=== PATIENT | female | born 1965 | race Caucasian/White ===

== ENCOUNTER 2018-02-15 13:36 | Outpatient (CLI) | payer BC ==
[~2018-02-15] VITALS: Ht 172.7 cm; Wt 97.1 kg
[2018-02-15] MEDS ORDERED: MULT-141 PO (13:44)
[2018-02-15 13:47] VITALS: BP 130/80
[2018-02-15 14:33] LABS: BASOPHILS # (AUTO) 0.1 10^3/uL (0.0-0.1); BASOPHILS % (AUTO) 2 % (0-10); EOSINOPHILS # (AUTO) 0.1 10^3/uL (0.0-0.3); EOSINOPHILS % (AUTO) 1 % (0-10); HEMATOCRIT 32 % (35-52); HEMOGLOBIN 9.7 G/DL (11.5-16.0); LYMPHOCYTES # (AUTO) 3.6 X 10^3 (1.0-4.0); LYMPHOCYTES % (AUTO) 49 % (12-44); MEAN CORPUSCULAR HEMOGLOBIN 22 PG (25-34); MEAN CORPUSCULAR HGB CONC 30 G/DL (32-36); MEAN CORPUSCULAR VOLUME 73 FL (80-99); MEAN PLATELET VOLUME 9.9 FL (7.4-10.4); MONOCYTES # (AUTO) 0.8 X 10^3 (0.0-1.0); MONOCYTES % (AUTO) 12 % (0-12); NEUTROPHILS # (AUTO) 2.6 X 10^3 (1.8-7.8); NEUTROPHILS % (AUTO) 36 % (42-75); PLATELET COUNT 328 10^3/uL (130-400); RED BLOOD COUNT 4.42 10^6/uL (4.35-5.85); RED CELL DISTRIBUTION WIDTH 17.3 % (10.0-14.5); WHITE BLOOD COUNT 7.3 10^3/uL (4.3-11.0)
== END 2018-02-15 14:30 | disposition home or self-care (01) ==
LOC: PREOP 13:36
PROVIDERS: ATTEND Obstetrics & Gynecology
DX: Z01.812 Encounter for preprocedural laboratory examination (principal); Z11.2 Encounter for screening for other bacterial diseases; R10.2 Pelvic and perineal pain; D25.9 Leiomyoma of uterus, unspecified; N93.9 Abnormal uterine and vaginal bleeding, unspecified
CPT/HCPCS: 36415; 85025; 86850; 86900; 86901; 87081

== ENCOUNTER 2018-02-21 09:46 | Day surgery (SDC) | payer BC ==
[~2018-02-21] VITALS: Ht 172.7 cm; Wt 97.1 kg
[~2018-02-21 09:46] MED LIST: MULT-141 PO
[2018-02-21] MEDS ORDERED: LACTATED RINGERS 1,000 ML IV PRN (09:55)
[2018-02-21] MEDS ORDERED: LACTATED RINGERS 1,000 ML IV ONE (09:55)
[2018-02-21] MEDS ORDERED: ceFAZolin 2 GM IV Premixed 50 ML IV ONE (10:00)
[2018-02-21] MEDS ORDERED: metroNIDAZOLE 500MG/100ML IVPB 100 ML IV ONE (10:00)
[2018-02-21] MEDS ORDERED: CATHETER FLUSH 10 ML SYR IV PRN (10:15)
[2018-02-21 10:35] VITALS: BP 141/82
[2018-02-21] MEDS ORDERED: MIDAZOLAM 2 MG/2 ML (VERSED) VIAL IV ONE (11:00)
[2018-02-21] MEDS ORDERED: MIDAZOLAM 2 MG/2 ML (VERSED) VIAL ONE ×2 (11:01→11:05)
--- NOTE | 2018-02-21 11:04 | Progress Note-Pre Operative ---
Pre-Operative Progress Note H&P Reviewed The H&P was reviewed, patient examined and no changes noted. Date Seen by Provider: Feb 21, 2018 Time Seen by Provider: 11:00 Date H&P Reviewed: Feb 21, 2018 Time H&P Reviewed: 11:00 Pre-Operative Diagnosis: Fibroid uterus, pelvic pain MIRTHA NOGUEIRA DO Feb 21, 2018 11:04
[2018-02-21] MEDS ORDERED: ROCURONIUM 10 MG/ML 5 ML SYRINGE IV ONE ×2 (11:05→12:52)
[2018-02-21] MEDS ORDERED: proPOfol 200 MG/20 ML (DIPRIVAN) VIAL IV ONE (11:05)
[2018-02-21] MEDS ORDERED: LIDOCAINE PF 2% 5 ML (XYLOCAINE) VIAL ONE (11:05)
[2018-02-21] MEDS ORDERED: ONDANSETRON 4 MG/2 ML (SDV) Z0FRAN ONE (11:05)
[2018-02-21] MEDS ORDERED: fentaNYL INJECTION 100 MCG/2 ML AMP ONE (11:05)
[2018-02-21] MEDS ORDERED: LACTATED RINGERS 1,000 ML IV SCH ×2 (11:13→14:30)
[2018-02-21] MEDS ORDERED: ONDANSETRON 4 MG/2 ML (SDV) Z0FRAN IV PRN (11:15)
[2018-02-21] MEDS ORDERED: ZOLPIDEM 5 MG (AMBIEN) TAB PO PRN (11:15)
[2018-02-21] MEDS ORDERED: SIMETHICONE 80 MG (MYLICON) CHEW PO PRN (11:15)
[2018-02-21] MEDS ORDERED: ANTACID SUSP 30 ML UDC (MYLANTA) PO PRN (11:15)
[2018-02-21] MEDS ORDERED: DOCUSATE SODIUM 100 MG (COLACE) CAP PO PRN (11:15)
[2018-02-21] MEDS ORDERED: CHLORASEPTIC LOZENGE MM PRN (11:15)
--- NOTE | 2018-02-21 11:16 | Discharge Inst-Women's Service ---
Discharge Inst-Women's Serv Depart Medication/Instructions New, Converted or Re-Newed RX: RX on Chart Consults/Follow Up Additional Follow Up: Yes Orders/Referrals Dr. Brady in 7-10 days and in 8 weeks Activity Activity: Activity as Tolerated Driving Instructions: No Driving for 1 Week NO SMOKING: NO SMOKING Nothing Inside Vagina: No Douching, No [place], No Tampons Diet Discharge Diet: No Restrictions Symptoms to Report to : Bleeding Excessive, Pain Increased, Fever Over 101 Degrees F, Vaginal Bleeding Increase, Questions/Concerns For Any Problems or Questions: Contact Your Physician Skin/Wound Care Infection Signs and Symptoms: Increased Redness, Foul Odor of Wound, Increased Drainage, Skin Itchy or Has a Rash, Increased Swelling, Temperature Above 101 F Operative Area Clean and Dry: Keep Incision Clean/Dry Stitches/Maria Luz/Dermabond: Dermabond, Care of Stitches Bathing Instructions: MIRTHA Luna DO Feb 21, 2018 11:16
[2018-02-21] MEDS ORDERED: HYDR-34 PO (11:18)
[2018-02-21] MEDS ORDERED: IBUP-844 PO (11:18)
[2018-02-21] MEDS ORDERED: DOCU100C37 PO (11:18)
[2018-02-21] MEDS ORDERED: SIME80TA16 PO (11:18)
[2018-02-21] MEDS ORDERED: SEVOFLURANE (ULTANE) 15 ML INHAL SOLN ONE ×10 (11:21→14:01)
[2018-02-21] MEDS ORDERED: DEXAMETHASONE 10 MG/ML (DECADRON) 1 ML VIAL ONE (11:21)
[2018-02-21] MEDS ORDERED: BUPIVACAINE 0.25% 30 ML (SENSORCAINE) VIAL ONE (11:27)
[2018-02-21] MEDS ORDERED: GLYCOPYRROLATE 0.2 MG/ML (ROBINUL) 2 ML VIAL ONE (13:52)
[2018-02-21] MEDS ORDERED: NEOSTIGMINE 1 MG/ML 5 ML SYRINGE ONE (13:52)
[2018-02-21] MEDS ORDERED: ONDANSETRON 4 MG/2 ML (SDV) Z0FRAN IVP PRN (14:15)
[2018-02-21] MEDS ORDERED: morphine INJ 10 MG/ML 1ML (SYR OR VIAL) IVP ONE (14:15)
[2018-02-21] MEDS ORDERED: morphine INJ 10 MG/ML 1ML (SYR OR VIAL) ONE (14:23)
--- NOTE | 2018-02-21 14:23 | Operative Report ---
Operative Report Date of Procedure/Surgery Feb 21, 2018 Surgeon (s) MIRTHA NOGUEIRA DO Supervising Producer (s): Marianela Patel Post-Operative Diagnosis same Procedure Performed RATLH w/ BSO and appendectomy Description of Procedure Anesthesia Type: General Estimated blood loss (mL): 50 Specimen(s) collected/removed Uterus bilateral fallopian tubes and ovaries, appendix Description of the Procedure EBL: 50mL UOP: 100 mL Fluids 2000 mL LR OPERATIVE REPORT IN DETAIL: Once in the operating room, general anesthesia was found to be adequate, placed in dorsal lithotomy position, prepped and draped in normal sterile fashion. Peres catheter was placed using sterile technique. A timeout was performed. A weighted speculum was inserted in the patient's vagina. Right angle retractor was used to visualize the cervix, which was grasped at 12 o'clock position using a long Allis clamp. I then placed an 0 Vicryl suture through the anterior lip of the cervix and removed the Allis clamp. The suture was then used as my retraction point. I then selected an 8 cm tip and a 4 cm colpotomy ring for the Meena uterine manipulator after the cervix is sounded and found to be 8 cm in depth. I then advanced the manipulator tip into the uterus and deployed the balloon and advanced a colpotomy around the vaginal fornix. Once this was in place, I am able to appreciate excellent manipulation on bimanual exam. All other instruments were removed from the patient's vagina. I then performed change of gloves and taken my attention to the abdomen where infraumbilically, I infiltrated the areas using 0.25% Marcaine, making an 12 mm incision and directed a Veress needle through the incision until the intraperitoneal placement was confirmed using a saline drop test. I then proceeded with insufflation using CO2 gas and opening pressure of 3 mmHg was noted and proceeded to a maximum pressure of 15 mmHg, at which point I removed the Veress needle and introduced an 12 mm blunt da Chloe camera trocar. Once this was in place, I am able to confirm intraperitoneal placement using the da Chloe laparoscope. I then had the patient placed in steep Trendelenburg after briefly scanning the upper abdominal anatomy, which shows no evidence of any gross abnormalities. Once in steep Trendelenburg, I am able to visualize all the pelvic anatomy described above in order to complete the procedure as scheduled. I then placed two 8 mm trocars at approximately 8cm lateral to my infraumbilical trocar. The skin was infiltrated using 0.25% Marcaine. The incisions were made using a knife and the trocars were placed under direct visualization of the laparoscope. Once these were in place, I am able to bring in the da Chloe robot and docked in the appropriate fashion. I placed the da [place]hoe vessel sealer in the left hand and the monopolar cris in the right hand. I then performed the following dissection bilaterally using the [place] operative console. Starting at the infundibulopelvic ligament, I bipolar cauterized and transected this using the bipolar fenestrated grasper and monopolar cris. During this process, I monitored and watched the ureter and stay well away from it as I am dissecting. I then grasped the round ligament, bipolar cauterized and transected this using the bipolar fenestrated grasper and monopolar cris. I then grasped the entire broad ligament, bipolar cauterized and transected this using the bipolar fenestrated grasper and monopolar cris. Then, I am able to take this all the way down to the lower uterine segment, at which point, I the anterior and posterior leaflets of the broad ligament. The anterior leaflet dissection was taken down to the anterior vaginal fornix. Posterior leaflet was taken down to the posterior vaginal fornix. This has allowed me to skeletonize the uterine vessels laterally and bipolar cauterized and transected them using the bipolar fenestrated grasper and monopolar cris. I then created a colpotomy at the 12 o'clock position using monopolar cris visualizing the colpotomy ring on the Emena. I then took this circumferentially around the colpotomy ring, amputating the cervix away from the vagina. I then removed the specimen through the vagina in two separate pieces after bivalving the uterus and closed the lateral vaginal apices of the vaginal cuff using 2-0 Vicryl suture in a [id number] fashion, colposuspending into the uterosacral ligament. I then closed the remainder of the vaginal cuff using 2-0 V-Loc in a running fashion, after which, there was no active bleeding noted from any of my dissection planes. I then undocked the da Chloe robot and proceeded with the remainder of the case laparoscopically. I started by copiously irrigating the pelvis using normal saline. Once again, there was no active bleeding noted from any of my dissection planes. I placed FloSeal hemostatic agent over all my planes of dissection. I take my attention to the terminal cecum, where I grasp the appendix which appears inflammed and mildly enlarged. I take down the mesoappendix using bipolar and cris. I then amputate the appendix from the cecum at the insertion using the laparoscopic ISABEL stapler. No bleeding was noted from any of my dissection planes.I had the patient taken out of steep Trendelenburg. Once this was done, I removed the lateral trocars under direct visualization of the laparoscope. The infraumbilical trocar was left in place. I introduced 10 mL of 0.25% Marcaine for postoperative pain management and to release insufflation. This trocar was then removed. I then closed the skin using 4-0 Monocryl in interrupted subcuticular stitches. Skinaffix was applied to incision and sterile dressing with adhesive white tape. Band-Aids were placed over the incisions. Findings of the Procedure Enlarged 436 gm uterus, grossly normal appearing bilateral fallopian tubes and ovaries. A grossly edematous and inflamed appearing appendix. Allergies and Home Medications Allergies Coded Allergies: No Known Drug Allergies (Unverified , 02/15/18) Home Medications Docusate Sodium 100 Mg Capsule, 100 MG PO BID PRN for CONSTIPATION-1ST LINE Prescribed by: MIRTHA NOGUEIRA on 02/21/18 1118 Hydrocodone Bit/Acetaminophen 1 Ea Tablet, 2 EA PO Q6H PRN for Pain-See Instructions Prescribed by: MIRTHA NOGUEIRA on 02/21/18 1118 Ibuprofen 600 Mg Tablet, 600 MG PO Q6H PRN for PAIN-MODERATE Prescribed by: MIRTHA NOGUEIRA on 02/21/18 1118 Multivit with Calcium,Iron,Min 1 Each Tablet, 1 TAB PO DAILY, (Reported) Simethicone 80 Mg Tab.chew, 40 MG PO TID PRN for INDIGESTION 2ND LINE Prescribed by: MIRTHA NOGUEIRA on 02/21/18 1118 Patient Home Medication List Home Medication List Reviewed: Yes MIRTHA NOGUEIRA DO Feb 21, 2018 2:23 pm
[2018-02-21] MEDS ORDERED: KETOROLAC 30 MG/ML VIAL ONE (14:29)
[2018-02-21] MEDS: KETOROLAC 30 MG/ML VIAL IV PRN ×2 (14:32→21:30)
--- NOTE | 2018-02-21 15:15 | NUR ---
FLO LEWIS presented to unit via BED from RECOVERY, accompanied by Tanna TINEO, RN AND BOO MANAGER OF BUSINESS OPERATIONS AFTER HAVING SURGERY. FAMILY AT PT'S BEDSIDE, REPORT RECEIVED.
[2018-02-21 15:20] VITALS: BP 131/80
--- NOTE | 2018-02-21 15:30 | NUR ---
VS OBTAINED. IV TUBING CONVERTED TO PUMP TUBING; FLUIDS INFUSING @ 125 ML/HR/PUMP. INITIAL SHIFT ASSESSMENT COMPLETED; SEE INTERVENTION FOR FURTHER. CABALLERO TO D/D. SCDS ON CALVES BILATERALLY. FAMILY AT THE BEDSIDE. CALL LIGHT WITHIN REACH. NEW ICE PACK PROVIDED FOR ABD.
[2018-02-21] MEDS ORDERED: HYDROcodone/APAP 7.5 MG/325 MG (LORTAB, LORCET PLUS) TABLET PO ONE (15:55)
[2018-02-21] MEDS: HYDROcodone/APAP 7.5 MG/325 MG (LORTAB, LORCET PLUS) TABLET PO PRN (17:55)
--- NOTE | 2018-02-21 19:15 | NUR ---
REPORT TO IVETT WRAY.
--- NOTE | 2018-02-21 19:40 | NUR ---
ADA OVALLE'D; SEE INTERVENTION FOR FURTHER. + PERICARE. NEW PAD AND PANTIES IN PLACE. LINENS PROVIDED TO S/O FOR OVERNIGHT STAY. MEDICATIONS REVIEWED PT WAS REQUESTING MORE PAIN MEDS, PT VERBALIZES UNDERSTANDING. NO FURTHER NEEDS ADDRESSED, CALL LIGHT WITHIN REACH. Addendum: 02/21/18 at 2129 by YARI CALVO RN 200 ML OF URINE OUTPUT NOTED FROM [facility].
[2018-02-21 20:14] VITALS: BP 122/68
[2018-02-22] VITALS: BP 124/71
[2018-02-22] MEDS: HYDROcodone/APAP 7.5 MG/325 MG (LORTAB, LORCET PLUS) TABLET PO PRN (00:18)
[2018-02-22] MEDS: KETOROLAC 30 MG/ML VIAL IV PRN (03:20)
[2018-02-22 04:00] VITALS: BP 108/73
[2018-02-22] MEDS ORDERED: IBUPROFEN 600 MG (MOTRIN) TAB PO PRN (04:00)
--- NOTE | 2018-02-22 07:33 | Anesthesia-General Post-Op ---
General Patient Condition Mental Status/LOC: Same as Preop Cardiovascular: Satisfactory Nausea/Vomiting: Absent Respiratory: Satisfactory Pain: Controlled Complications: Absent Post Op Complications Complications None Follow Up Care/Instructions Patient Instructions None needed. Anesthesia/Patient Condition Patient Condition Patient is doing well, no complaints, stable vital signs, no apparent adverse anesthesia problems. No complications reported per nursing. D/C home per [facility] Criteria: No SINCERE MILTON CRNA Feb 22, 2018 07:33
--- NOTE | 2018-02-22 08:00 | NUR ---
Per Vianey Willis RN, Dr. Rico called, said pt june D/C to home before Dr. Rico rounds.
[2018-02-22 08:15] VITALS: BP 110/58
--- NOTE | 2018-02-22 08:36 | NUR ---
Follow up appts made.
--- NOTE | 2018-02-22 09:10 | NUR ---
Discharge instructions explained to pt with copy provided to pt along with prescriptions. Pt notified of follow up appointments. Pt verbalizes understanding of instructions. Denies needs or concerns at this time. Pt ambulates self off unit accompanied by S.O. and RN. to private vehicle. All personal belongings remain with pt. No s/s of distress noted.
== END 2018-02-22 09:10 | disposition home or self-care (01) ==
LOC: SDC 09:46 → WS 15:15 → SDC 02-22 09:10
PROVIDERS: ATTEND Obstetrics & Gynecology
DX: N94.5 Secondary dysmenorrhea (principal); N80.0 Endometriosis of uterus; D25.1 Intramural leiomyoma of uterus; N83.8 Other noninflammatory disorders of ovary, fallopian tube and broad ligament; N70.11 Chronic salpingitis; N83.11 Corpus luteum cyst of right ovary; K38.9 Disease of appendix, unspecified; E66.9 Obesity, unspecified; Z68.32 Body mass index [BMI] 32.0-32.9, adult
CPT/HCPCS: 84703; 86850; 86900; 86901; 88304; 88307; 94664

== ENCOUNTER 2019-05-24 11:36 | Emergency (ER) | payer OTHER, BC ==
[~2019-05-24] VITALS: Ht 167 cm; Wt 80.0 kg
[~2019-05-24 11:36] MED LIST changes: +DOCU100C37 PO; +HYDR-34 PO; +IBUP-844 PO; +SIME80TA16 PO
[2019-05-24] MEDS ORDERED: NAPR-1071 PO (11:53)
--- NOTE | 2019-05-24 11:53 | ED Upper Extremity ---
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 She states that she has done many times but yesterday she developed a sudden pain in the shoulder when doing so. Today she has difficulty with moving the right arm because of pain at the shoulder. Onset: just prior to arrival Severity: moderate Pain/Injury Location: right shoulder Method of Injury: unknown Modifying Factors: Worse With Movement Allergies and Home Medications Allergies Coded Allergies: No Known Drug Allergies (Unverified , 02/15/18) Home Medications Docusate Sodium 100 Mg Capsule, 100 MG PO BID PRN for CONSTIPATION-1ST LINE Prescribed by: MIRTHA NOGUEIRA on 02/21/18 1118 Hydrocodone Bit/Acetaminophen 1 Ea Tablet, 2 EA PO Q6H PRN for Pain-See Instructions Prescribed by: MIRTHA NOGUEIRA on 02/21/18 1118 Ibuprofen 600 Mg Tablet, 600 MG PO Q6H PRN for PAIN-MODERATE Prescribed by: MIRTHA NOGUEIRA on 02/21/18 1118 Multivit with Calcium,Iron,Min 1 Each Tablet, 1 TAB PO DAILY, (Reported) Naproxen 500 Mg Tablet, 500 MG PO BID PRN for PAIN-MODERATE (5-7) Prescribed by: FELECIA HYMAN on 05/24/19 1153 Simethicone 80 Mg Tab.chew, 40 MG PO TID PRN for INDIGESTION 2ND LINE Prescribed by: MIRTHA NOGUEIRA on 02/21/18 1118 Patient Home Medication List Home Medication List Reviewed: Yes Review of Systems Constitutional: see HPI EENTM: see HPI Respiratory: no symptoms reported Cardiovascular: no symptoms reported Genitourinary: no symptoms reported Musculoskeletal: see HPI Skin: no symptoms reported Psychiatric/Neurological: No Symptoms Reported Past Jddmdhx-Zitwbs-Hbqrgw Hx Patient Social History 2nd Hand Smoke Exposure: No Recent Foreign Travel: No Contact w/Someone Who Travel: No Recent Hopitalizations: No Immunizations Up To Date Date of Influenza Vaccine: Nov 19, 2017 Seasonal Allergies Seasonal Allergies: Yes Past Medical History Surgeries: Yes Gallbladder, Tonsillectomy, Tubal Ligation Respiratory: No Cardiac: No (murmur as a child) Neurological: No (seizure when 18, none since no cause found) Seizure Disorder Genitourinary: No Gastrointestinal: No Musculoskeletal: No Endocrine: No HEENT: No Cancer: No Psychosocial: No Integumentary: No Blood Disorders: Yes (anemia) Family Medical History Cardiovascular disease 19 FATHER G8 BROTHER G8 SISTER Hypertension 19 FATHER 19 MOTHER G8 BROTHER G8 SISTER Kidney disease 19 MOTHER Myocardial infarction G8 BROTHER Respiratory disorder 19 FATHER (lung cancer) Seizure disorder G8 BROTHER Thyroid disease 19 MOTHER Physical Exam Vital Signs Vital Signs - First Documented 05/24/19 11:49 Temp 36.5 Pulse 72 Resp 16 B/P (MAP) 143/87 (105) Capillary Refill : Height, Weight, BMI Height: 5'8.00" Weight: 214lbs. 0.0oz. [id number]; 32.5 BMI Method: General Appearance: WD/WN, no apparent distress HEENT: PERRL/EOMI, normal ENT inspection Respiratory: no respiratory distress, no accessory muscle use Shoulder: normal inspection, limited ROM, pain Wrist: Yes normal inspection, Yes non-tender Hand: normal inspection, non-tender Neurologic/Psychiatric: alert, normal mood/affect, oriented x 3 Skin: normal color, warm/dry Progress/Results/Core Measures Results/Orders My Orders Orders - FELECIA HYMAN APRN Shoulder, Right, 3 Views (05/24/19 11:47) Vital Signs/I&O 05/24/19 11:49 Temp 36.5 Pulse 72 Resp 16 B/P (MAP) 143/87 (105) Diagnostic Imaging Diagonstic Imaging: Xray Comments NAME: FLO LEWIS [facility] REC#: [id number] PT STATUS: REG ER : 1965 PHYSICIAN: FELECIA HYMAN APRN ADMIT DATE: 05/24/19/ER Draft Date of Exam:05/24/19 SHOULDER, RIGHT, 3 VIEWS INDICATION: [place] a pop. Pain. EXAMINATION: Right shoulder 05/24/2019. FINDINGS: There is density adjacent to the greater tuberosity consistent with rotator cuff tendinopathy. The osseous structures are otherwise intact with no fractures or dislocations. Minimal degenerative findings seen at the acromioclavicular joint. IMPRESSION: 1. Findings of rotator cuff tendinopathy. Remaining examination is unremarkable. Dictated on workstation # [id number] Dict: 05/24/19 1201 Trans: 05/24/19 1203 [facility] [id number] Interpreted by: MARK ROBLES MD Electronically signed by: Departure Impression Primary Impression: Tendinopathy of right rotator cuff Disposition: HOME, SELF-CARE Condition: Stable Departure-Patient Inst. Decision time for Depature: 11:50 Referrals: NO,LOCAL PHYSICIAN (PCP/Family) Primary Care Physician Patient Instructions: Shoulder Tendinopathy (DC) Add. Discharge Instructions: 1. Anti-inflammatories as directed 2. Sling as directed. Follow-up with your doctor next week to discuss obtaining an MRI of the shoulder. Scripts Naproxen (Naprosyn) 500 Mg Tablet 500 MG PO BID PRN for PAIN-MODERATE (5-7), #30 TAB 0 Refills Prov: FELECIA HYMAN APRN 05/24/19 Work/School Note: Work Release Form Date Seen in the Emergency Department: May 24, 2019 Return to Work: May 25, 2019 Other Restrictions Listed Below: no use of right arm x1 week. FELECIA HYMAN APRN May 24, 2019 11:53
--- NOTE | 2019-05-24 12:04 | Diagnostic Imaging Report ---
INDICATION: [place] a pop. Pain. EXAMINATION: Right shoulder 05/24/2019. FINDINGS: There is density adjacent to the greater tuberosity consistent with rotator cuff tendinopathy. The osseous structures are otherwise intact with no fractures or dislocations. Minimal degenerative findings seen at the acromioclavicular joint. IMPRESSION: 1. Findings of rotator cuff tendinopathy. Remaining examination is unremarkable. Dictated by: Dictated on workstation # [id number]
[2019-05-24 12:20] VITALS: BP 140/72
== END 2019-05-24 12:23 | disposition home or self-care (01) ==
LOC: EDUNIT# 11:36 → ER 11:39
DX: M75.81 Other shoulder lesions, right shoulder (principal)
CPT/HCPCS: 73030

== ENCOUNTER → 2019-06-03 | Outpatient (REF) | payer OTHER, BC ==
[~2019-06-03] MED LIST changes: +NAPR-1071 PO
--- NOTE | 2019-06-03 09:56 | Diagnostic Imaging Report ---
EXAMINATION: Magnetic resonance imaging of the right shoulder without contrast. DATE: June 03, 2019. COMPARISON: Right shoulder radiographs May 24, 2019. HISTORY: 53-year-old female, right shoulder pain. Lifting injury in May 2019. TECHNIQUE: Magnetic Resonance Imaging sequences were performed of the shoulder without contrast. FINDINGS: ROTATOR CUFF, LIGAMENTS, TENDONS, AND MUSCLES: There are low signal foci in the infraspinatus tendon, consistent with calcific tendinitis. This is also seen on comparison radiographs. There is tendinopathy of supraspinatus and infraspinatus. The teres minor tendon is intact. There is subscapularis tendinopathy. There is normal rotator cuff muscle bulk and signal. LONG HEAD OF BICEPS: The biceps labral attachment and long head of the biceps tendon are intact. The long head of the biceps tendon is normally positioned within the bicipital groove. GLENOHUMERAL JOINT: The humeral head is well positioned relative to the glenoid. The labrum is grossly intact. There is no identified paralabral cyst. The articular cartilage is grossly intact. There is no joint effusion. ACROMIOCLAVICULAR JOINT: The acromioclavicular joint is normally aligned. The coracoclavicular and coracoacromial ligaments are intact. There are mild acromioclavicular degenerative changes with osteophytes extending 1 to 2 mm below the joint margin. BONE: There is no os acromiale. There is no acute fracture, bone contusion, or evidence of osteonecrosis. BURSAE AND SOFT TISSUES: There is fluid in the subacromial/subdeltoid bursa, consistent with bursitis and/or recent injection. IMPRESSION: 1. Supraspinatus, subscapularis, and infraspinatus tendinopathy. Calcific tendinitis of infraspinatus. Negative for rotator cuff tendon tear. 2. Mild acromioclavicular degenerative changes with 1 to 2 mm undersurface osteophytes. 3. Unremarkable glenohumeral joint assessment. 4. Fluid in the subacromial/subdeltoid bursa, consistent with bursitis and/or recent injection. 5. No acute fracture, bone contusion, or evidence of osteonecrosis. Dictated by: Dictated on workstation # [id number]
== END ==
LOC: RAD 08:33
PROVIDERS: ATTEND Nurse Practitioner Family
DX: M75.31 Calcific tendinitis of right shoulder (principal)
CPT/HCPCS: 73221